=== PATIENT | female | born 1975 | race American Indian/Alaskan Native ===

== ENCOUNTER 2017-12-13 10:38 | Day surgery (SDC) | payer MEDICAID ==
[2017-12-13] MEDS ORDERED: Sodium Chloride 0.9% 1,000 ML IV ONE ×2 (11:35→14:30)
[2017-12-13 12:04] LABS: INR 0.9; PROTHROMBIN TIME 10.4 Seconds (9.8-13.1)
[2017-12-13] MEDS ORDERED: Lidocaine 1% 5ml Abboject ONE (12:38)
[2017-12-13 12:39] VITALS: O2SAT 100
[2017-12-13] MEDS ORDERED: Midazolam 2 MG/2 ML VIAL ONE (12:44)
[2017-12-13] MEDS ORDERED: Absorbable Gelatin Sponge Size 12-7 ONE (12:52)
--- NOTE | 2017-12-13 12:59 | CP.SDSHP ---
Same Day Surgery H & P - History Proposed Procedure: US guided renal biopsy Pre-Op Diagnosis: Proteinuria - Allergies Allergies: Allergies fruits Allergy (Uncoded 12/13/17 11:15) ITCHING seasonal Allergy (Uncoded 12/13/17 11:15) ITCHING SNEEZING - Physical Exam Vital Signs: Vital Signs 12/13/17 12/13/17 12/13/17 11:33 11:53 12:38 Temperature 98.4 F 98.5 F Pulse Rate 91 H 91 H 88 Respiratory 14 16 Rate Blood Pressure 146/94 H 159/101 H O2 Sat by Pulse 100 Oximetry Mental Status: Alert & Oriented x3 - Impression Impression: Pt with proteinuria refered for renal biopsy. Plan US guided renal biopsy. Pt. Evaluated Today:Candidate for Anesthesia & Procedure: Yes (ASA 3 Malampati 3) - Date & Time Date: 12/13/17 Time: 12:55 Short Stay Discharge - Short Stay Discharge Admitting Diagnosis/Reason for Visit: R31.21, R80.9, R76.0 Disposition: HOME/ ROUTINE
--- NOTE | 2017-12-13 13:01 | PCM.SURG1 ---
Surgeon's Initial Post Op Note - Surgeon's Notes Surgeon: Kareem Mota MD Senior Mechanical Design Engineer: NONE Type of Anesthesia: IV Sedation Pre-Operative Diagnosis: Proteinuria Operative Findings: US showed an unremarkable right kidney Post-Operative Diagnosis: Proteinuria Operation Performed: US guided right renal biopsy. Three 18-g core specimen removed and sent routine histology Specimen/Specimens Removed: 18-guage core x 3 Estimated Blood Loss: EBL {In ML}: 3 Blood Products Given: N/A Drains Used: No Drains Post-Op Condition: Good Date of Surgery/Procedure: 12/13/17 Time of Surgery/Procedure: 13:00
[2017-12-13] MEDS ORDERED: Sodium Chloride 0.9% 1,000 ML IV SCH (13:15)
--- NOTE | 2017-12-13 13:25 | US ---
PROCEDURE: Date of procedure: 12/13/2017 Procedure: Ultrasound-guided right renal biopsy, CPT 77316 Ultrasound guidance for biopsy, 28571 Medication: 8 cc 2% Lidocaine, patient received IV sedation by the anesthesiologist along with physiologic monitoring. HISTORY: Proteinuria TECHNIQUE: Following informed consent and procedure time-out, the patient was placed prone on the interventional table and a limited ultrasound showed unremarkable right kidney consistent. The patient back was prepped and draped in the usual sterile fashion. After patient sedated by the anesthesiologist and the skin anesthetized with lidocaine, an 18 gauge core needle was advanced percutaneously towards the lower pole cortex. Upon confirmation of needle position, three-18 gauge core specimens were obtained and sent for routine pathology. The biopsy tract was then embolized with Gelfoam. A post biopsy ultrasound showed no hematoma. There were no immediate complications. IMPRESSION: Ultrasound-guided right renal biopsy.
[2017-12-13 13:35] VITALS: RESP 18
[2017-12-13 16:20] VITALS: BP 136/89; PULSE 94; TEMP 97.6
== END 2017-12-13 16:30 | disposition home or self-care (01) ==
LOC: H.OPSURG 10:38
PROVIDERS: ATTEND Internal Medicine
DX: R76.0 Raised antibody titer (principal); R80.9 Proteinuria, unspecified; R31.21 Asymptomatic microscopic hematuria; J45.909 Unspecified asthma, uncomplicated; E11.9 Type 2 diabetes mellitus without complications; I10 Essential (primary) hypertension
CPT/HCPCS: 36415; 50200; 76942; 82948; 85610; 88307; J2250; J3010; J7030